=== PATIENT | female | born 1950 | race Caucasian/White ===

== ENCOUNTER 2016-10-21 10:14 | Emergency (ER) | payer SELFPAY ==
--- NOTE | 2016-10-21 11:31 | UCPHY ---
[id number] 4d 10/21/16 11:20 HPI/ROS: CHIEF COMPLAINT: Possible hemorrhoid HISTORY OF PRESENT ILLNESS: 65-year-old female with no anticoagulant use, visiting from [facility], returning in 3 days, history of chronic hemorrhoids, complaining of acute hemorrhoid exacerbation after acute constipation and manual disimpaction last evening. No abdominal pain. No nausea or vomiting. No melena or hematochezia. PHYSICAL EXAM (Prior to examination, patient consented to physical exam, hands were washed and my usual and customary physical exam procedures followed) 1) GENERAL: Well-developed, well-nourished, alert and oriented. Appears to be in no acute distress. 2) HEAD: Normocephalic 3) HEENT: sclera anicteric 4) LUNGS: Breathing comfortably. 5) rectal (with nurse at bedside at all times): Large external hemorrhoids with in area at approximately 5 o'clock position which is thrombosed. the majority however not thrombosed. No active bleeding. Tender. No evidence of perianal abscess. (Elif Wells) Constitutional: Initial Vital Signs Temperature (C) 36.6 C 10/21/16 10:29 Heart Rate 98 10/21/16 10:29 Respiratory Rate 18 10/21/16 10:29 Blood Pressure 125/91 H 10/21/16 10:29 O2 Sat (%) 98 10/21/16 10:29 O2 Delivery Mode Room Air Allergies/Adverse Reactions: No Known Allergies Allergy (Verified 05/20/15 07:35) Home Medications: Medication Instructions Recorded Docusate Sodium [Colace] 100 mg PO BID #6 cap 10/21/16 Hydrocortisone Acetate [Anucort-Hc] 25 mg RC BID #10 supp.rect 10/21/16 Lidocaine [Lmx 4] 30 gm TP QID PRN #30 cream..g. 10/21/16 MDM/Departure - [facility] ED Course/Re-evaluation: Patient has been evaluated by myself and Dr. Amy Caceres. She does have a large external hemorrhoid after performing manual disimpaction last evening. There is a small area which is thrombosed. We discussed the indications risks benefits of removing the thrombus. We do not think benefits outweigh the risks for such a large area which is nonthrombosed. I have provided her the name of local general surgeon mobile solutions architect should she decide to stay otherwise she will need follow-up with a general surgeon in [facility]. In the meantime she has been given prescription for topical lidocaine, recommend Sitz baths, given medication for constipation. (Elif Wells) I have evaluated and participated in the management of this patient. My co- signature indicates that I have reviewed this chart and that I agree with the findings and the plan of care as documented. My personal history and physical findings include: 65-year-old woman with a long history of difficulty with hemorrhoids. For many years she has had a history of constipation and hemorrhoid. She has had banding performed. She has recently been traveling, has been constipated, and attempted to manually disimpact herself last night. This exacerbated her long-standing hemorrhoid problem and this morning she presents with a large painful hemorrhoid. On examination she has a hemorrhoid approximately the size of a plum with a small central area of thrombosis. The majority of it is not thrombosed. There is no active bleeding. This area is tender. Treatment options were discussed with her. I think that a surgical option is most appropriate. I do not think that removing the small thrombosed area is likely to provide significant relief. She is here visiting her daughter and will decide whether not she would like to extend her stay and see a local surgeon. She is given a referral. She is given instructions concerning treatment of constipation and symptomatic treatment of hemorrhoids. (Amy Caceres) - Depart Disposition: Home, Routine, Self-Care Clinical Impression: Hemorrhoid Qualifiers: Hemorrhoid type: unspecified Qualifier Code: (K64.9) Unspecified hemorrhoids Condition: Good Instructions: Hemorrhoids (ED) Additional Instructions: Return to the Urgent Care go to the ER if you have new or worsening symptoms Prescriptions: Hydrocortisone Acetate [Anucort-Hc] 25 mg RC BID #10 supp.rect Docusate Sodium [Colace] 100 mg PO BID #6 cap Lidocaine [Lmx 4] 30 gm TP QID PRN #30 cream..g. PRN Reason: Pain, Moderate Referrals: Magan Stinson MD [Medical Doctor] - 1-2 days without fail (Dr Stinson is a general surgeon if you stay in this area. Otherwise, see a general surgeon [facility]) - PQRS PQRS Measurement: n/a (Elif Wells)
[2016-10-21 12:04] VITALS: BP 125/91; PULSE 98; RESP 18; TEMP 98; O2SAT 98
== END 2016-10-21 11:58 | disposition home or self-care (01) ==
LOC: CED 10:14
DX: K64.9 Unspecified hemorrhoids (principal)
CPT/HCPCS: 99214-PO; G0463-PO